=== PATIENT | female | born 1955 | race Caucasian/White ===

== ENCOUNTER 2017-03-28 09:04 | Emergency (ER) | payer MEDICAID ==
--- NOTE | 2017-03-28 09:51 | EDM.PDOC ---
ED HPI GENERAL MEDICAL PROBLEM - General Chief Complaint: Flank Pain Stated Complaint: MID BACK PAIN/KIDNEYS? Time Seen by Provider: 03/28/17 09:35 Source of Information: Reports: Patient, Old Records, RN History Limitations: Reports: No Limitations - History of Present Illness INITIAL COMMENTS - FREE TEXT/NARRATIVE: 61 yo female presents with back pain for about a week that is getting worse. Denies injury or urinary sx's except for mild dysuria. Pain is worse with movement. Has been getting partial relief with ibuprofen. Has not been to the clinic for this. Is a life long smoker. Is not aware of osteoporosis personally or in her family. 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 yesterday) Left Flank Pain Score (Numeric/FACES): 6 - Related Data Allergies Allergy/AdvReac Type Severity Reaction Status Date / Time erythromycin base Allergy Cannot Verified 03/28/17 09:23 Remember Home Meds: Home Meds Levothyroxine 75 mcg PO DAILY 03/28/17 [History] Past Medical History 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: Endocrine/Metabolic History: Reports: Hypothyroidism - Infectious Disease History Infectious Disease History: Reports: Chicken Pox, Measles - Past Surgical History HEENT Surgical History: Reports: Tonsillectomy Cardiovascular Surgical History: Reports: Varicose Social & Family History - Tobacco Use Smoking Status *Q: Former Smoker Used Tobacco, but Quit: Yes Month Tobacco Last Used: 36 - Caffeine Use Caffeine Use: Reports: Coffee - Recreational Drug Use Recreational Drug Use: No ED ROS GENERAL - Review of Systems Review Of Systems: See Below Constitutional: Reports: No Symptoms HEENT: Reports: No Symptoms Respiratory: Reports: No Symptoms, Cough (chronic from smoking) Cardiovascular: Reports: No Symptoms GI/Abdominal: Reports: No Symptoms : Reports: Dysuria (mild). Denies: Discharge, Flank Pain, Frequency, Hematuria, Urgency, Urinary Retention Musculoskeletal: Reports: Back Pain Skin: Reports: No Symptoms Neurological: Reports: No Symptoms ED EXAM,LOWER BACK PAIN/INJURY - Physical Exam Exam: See Below Exam Limited By: No Limitations General Appearance: Alert, WD/WN, No Apparent Distress Eye Exam: Bilateral Eye: Normal Inspection Ears: Normal External Exam, Normal Canal, Hearing Grossly Normal, Normal TMs Nose: Normal Inspection, Normal Mucosa, No Blood Throat/Mouth: Normal Inspection, Normal Lips, Normal Oropharynx, Normal Voice, No Airway Compromise Head: Atraumatic, Normocephalic Neck: Normal Inspection, Supple, Non-Tender Respiratory/Chest: No Respiratory Distress, Lungs Clear, Normal Breath Sounds, No Accessory Muscle Use, Other (Frequent "smoker's cough") Cardiovascular: Regular Rate, Rhythm, No Edema Back Exam: Normal Inspection, Paraspinal Tenderness (T-spine level bilaterally) , Vertebral Tenderness (upper T-spine). No: CVA Tenderness (R), CVA Tenderness (L) Extremities: Normal Inspection, Normal Range of Motion, Non-Tender, No Pedal Edema Neurological: Alert, Normal Mood/Affect, CN II-XII Intact, No Motor/Sensory Deficits, Oriented x 3 Psychiatric: Normal Affect, Normal Mood Skin Exam: Warm, Dry, Intact, Normal Color, No Rash Course - Vital Signs Last Recorded V/S: Last Vital Signs Temp 36.2 C 03/28/17 09:25 Pulse 72 03/28/17 09:25 Resp 16 03/28/17 09:25 BP 142/69 H 03/28/17 09:25 Pulse Ox 97 03/28/17 09:25 - Orders/Labs/Meds Orders: Active Orders 24 hr Category Date Time Status Lumbar Spine 2 or 3V [CR] Stat Exams 03/28/17 10:30 Taken Thoracic Spine 2V [CR] Stat Exams 03/28/17 09:45 Taken Labs: Laboratory Tests 03/28/17 Range/Units 09:38 Urine Color Yellow Urine Appearance Clear Urine pH 7.0 (4.5-8.0) Ur Specific [place] 1.005 L (1.008-1.030) Urine Protein Negative (NEGATIVE) mg/dL Urine Glucose (UA) Normal (NEGATIVE) mg/dL Urine Ketones Negative (NEGATIVE) mg/dL Urine Occult Blood Negative (NEGATIVE) Urine Nitrite Negative (NEGATIVE) Urine Bilirubin Negative (NEGATIVE) Urine Urobilinogen Normal (NORMAL) mg/dL Ur Leukocyte Esterase Negative (NEGATIVE) Urine RBC 0-5 (0-5) Urine WBC 0-5 (0-5) Ur Epithelial Cells Rare Amorphous Sediment Not seen Urine Bacteria Few Urine Mucus Not seen - Radiology Interpretation Free Text/Narrative:: X-ray of [id number] X-ray of [id number] for apparent compression fx's or other pathology Departure - Departure Time of Disposition: 10:49 Disposition: Home, Self-Care 01 Condition: Good Clinical Impression: Back pain Qualifiers: Back pain location: back pain in other location Chronicity: unspecified Qualified Code(s): M54.89 - Other dorsalgia - Discharge Information Referrals: Devonte Mackey MD [Primary Care Provider] - Forms: ED Department Discharge - My Orders Last 24 Hours: My Active Orders 03/28/17 09:45 Thoracic Spine 2V [CR] Stat 03/28/17 10:30 Lumbar Spine 2 or 3V [CR] Stat - Assessment/Plan Last 24 Hours: My Active Orders 03/28/17 09:45 Thoracic Spine 2V [CR] Stat 03/28/17 10:30 Lumbar Spine 2 or 3V [CR] Stat
--- NOTE | 2017-03-29 11:15 | CR ---
Thoracic Spine 2V INDICATION: upper thoracic spine pain, ? compression fx FINDINGS: Mild upper thoracic curve convex to the left. Mild compression of the superior endplate of T12, age indeterminant. Consider MRI for further evaluation if clinically indicated.
--- NOTE | 2017-03-29 11:16 | CR ---
Lumbar Spine 2 or 3V INDICATION: back pain FINDINGS: 5 lumbar type vertebral bodies. Slight retrolisthesis of L3 on L4. Moderate to advanced fac et arthropathy mid and lower lumbar spine. Mild compression of the superior endplate of T12, age inde terminant. Consider MRI for further evaluation if clinically indicated.
== END 2017-03-28 11:08 | disposition home or self-care (01) ==
LOC: JP.ED 09:04
DX: M54.89 Other dorsalgia (principal); Z88.1 Allergy status to other antibiotic agents; Z79.899 Other long term (current) drug therapy; Z87.891 Personal history of nicotine dependence
CPT/HCPCS: 72070; 72070-26; 72100; 72100-26; 81001; 99284

== ENCOUNTER 2021-01-06 07:39 | Day surgery (SDC) | payer MEDICAID ==
[~2021-01-06 07:39] MED LIST: Sodium Chloride 0.9% 10 ML ONE
[2021-01-06] MEDS: Sodium Chloride 0.9% 1,000 ML IV SCH (08:58)
[2021-01-06] MEDS ORDERED: Lidocaine 1% w/EPINEPHrine 50 ML, Sodium Bicarbonate 5 MEQ in Sodium Chloride 0.9% 950 ML INJECT ONE ×2 (09:00→09:15)
[2021-01-06] MEDS: Sodium Tetradecyl Sulfate 1% 20 MG/2 ML SDV ONE (09:31)
[2021-01-06] MEDS: Sodium Chloride 0.9% 10 ML SDV ONE (09:31)
[2021-01-06] MEDS: Lidocaine 1% with EPINEPHrine 1:100,000 50 ML MDV ONE (09:31)
[2021-01-06] MEDS ORDERED: Propofol 200 MG/20 ML SDV ONE (09:52)
[2021-01-06] MEDS ORDERED: Midazolam 1 MG/ML 2 ML SDV ONE (09:52)
[2021-01-06] MEDS ORDERED: fentaNYL 100 MCG/2 ML SDV ONE (09:52)
--- NOTE | 2021-01-06 13:40 | OR ---
DATE OF PROCEDURE: 01/06/2021 SURGEON: Nikolas Qureshi MD PROCEDURE: 1. Radiofrequency ablation, left greater saphenous vein. 2. Radiofrequency ablation, left lesser saphenous vein. 3. Sclerotherapy, left leg, multiple. 4. Sclerotherapy, right leg, multiple. 5. Compression wrap, left leg ([id number]). 6. Compression wraps, right leg ([id number]). COMPLICATIONS: None. BOOK REVIEWER: None. ANESTHESIA: MAC. PREOPERATIVE DIAGNOSIS: Venous insufficiency with inflammation and pain. POSTOPERATIVE DIAGNOSIS: Venous insufficiency with inflammation and pain. RISKS: Risks, benefits, alternatives, and limitations including, but not limited to infection, bleeding, perforation, false positives and false negatives were explained to the patient and they wished to proceed. PROCEDURE IN DETAIL: The patient was placed in supine position. The left lesser saphenous vein was addressed first. This was accessed using a 21-gauge needle, then exchanged for 35,000th wire, then exchanged for a 7-Romanian sheath. The RFA probe was advanced to greater than 2 cm from the deep junction. This was injected with tumescent fluid around this. The probe was deployed x1 in all segments. Sheath and device were then removed. Direct pressure was held for 10 minutes. Left greater saphenous vein was then addressed next. This was accessed also in the same manner, same fashion, same technique, and in the same sequence. This was placed 3 cm from the deep junction also. Verified second and third time for tumescent placement and probe was deployed x2 proximally and distally and x1 in all segments. Sheath and device were then removed. Dermabond was applied. Sclerotherapy was then performed, left and right legs, using 0.33% sodium tetradactyl, 5 on the right and 6 on the left. Always drawn back to ensure intravascular injection only. No more than 2 mL was injected in one location. Two layer, two-stage of 20 mm gradient compression wrap was then performed bilaterally in a figure of eight formation. The patient tolerated procedure well. Nikolas Qureshi MD /[id number]
== END 2021-01-06 11:30 | disposition home or self-care (01) ==
LOC: JP.SDS 07:39
PROVIDERS: ATTEND Surgery
DX: I87.2 Venous insufficiency (chronic) (peripheral) (principal); I80.9 Phlebitis and thrombophlebitis of unspecified site
CPT/HCPCS: J1642; J2250; J2704; J3010; J3490; J7030

== ENCOUNTER 2021-01-27 07:34 | Day surgery (SDC) | payer MEDICAID ==
[2021-01-27] MEDS ORDERED: Propofol 200 MG/20 ML SDV ONE (08:06)
[2021-01-27] MEDS ORDERED: fentaNYL 100 MCG/2 ML SDV ONE (08:06)
[2021-01-27] MEDS ORDERED: Midazolam 1 MG/ML 2 ML SDV ONE (08:06)
[2021-01-27] MEDS ORDERED: Sodium Chloride 0.9% 1,000 ML IV SCH (08:30)
--- NOTE | 2021-01-27 11:24 | OR ---
DATE OF PROCEDURE: 01/27/2021 SURGEON: Nikolas Qureshi MD PROCEDURE: Colonoscopy. FINDINGS: Ascending colon polyp, approximately 5 mm, completely removed using hot snare wire device. COMPLICATIONS: None. MEDICAL CLAIMS PROCESSOR: None. PREOPERATIVE DIAGNOSIS: Screening colonoscopy. POSTOPERATIVE DIAGNOSIS: Screening colonoscopy. RISKS: Risks, benefits, alternatives, and limitations including, but not limited to infection, bleeding, perforation, false positives and false negatives were explained to the patient who wished to proceed. PROCEDURE IN DETAIL: The patient was placed in left lateral decubitus position. Digital rectal exam was performed without abnormality. Scope was introduced and advanced atraumatically to the ileocecal valve. Scope was brought back to the ascending, transverse, descending colon, and retroflexed. No evidence of old or new blood. No masses. No polyps. No diverticulosis. No abnormalities on retroflexion. Greater than 8 minutes was spent removing the scope. Prep was acceptable, approximately 85% to 90% of the luminal surface could be seen. The patient was noted to have a mildly tortuous sigmoid colon. Nikolas Qureshi MD /[id number]
== END 2021-01-27 10:48 | disposition home or self-care (01) ==
LOC: JP.SDS 07:34
PROVIDERS: ATTEND Surgery
DX: Z12.11 Encounter for screening for malignant neoplasm of colon (principal); D12.2 Benign neoplasm of ascending colon; E03.9 Hypothyroidism, unspecified; Z88.8 Allergy status to other drugs, medicaments and biological substances
CPT/HCPCS: 45385; 88305; J2250; J2704; J3010; J7030